=== PATIENT | male | born 1970 | race Caucasian/White ===

== ENCOUNTER 2024-06-11 19:54 | Emergency (ER) | payer BC, SELFPAY ==
[2024-06-11 19:55] VITALS: BMI 36.5
[2024-06-11 19:56] VITALS: BP 158/103
[2024-06-11 20:27] LABS: % Basophils 0.2 % (0-2); % Eosinophils 1.1 % (0-6); % Immature Granulocytes 0.2 % (0-0.5); % Lymphocytes 20.1 % (20.5-51.1); % Monocytes 6.6 % (1.7-9.3); % Neutrophils 71.8 % (42.2-75.2); Absolute Eosinophils 0.1 10^3/uL (0-0.7); Absolute Monocytes 0.7 10^3/uL (0.1-0.6); Absolute Neutrophils 7.1 10^3/uL (1.4-6.5); Hematocrit 41.2 % (39.0-52.0); Hemoglobin 14.4 g/dL (13.0-18.0); Mean Corpuscular Hgb 31.6 pg (27.0-31.0); Mean Corpuscular Volume 90.5 fL (80.0-94.0); Mean Platelet Volume 9.3 fL (7.4-10.4); Nucleated Red Blood Cells % 0 % (-); Platelet Count 196 10^3/uL (130-400); Red Blood Cell Count 4.55 10^6/uL (4.70-6.10); Red Cell Dist. Width 11.5 % (11.5-14.5); White Blood Cell Count 9.8 10^3/uL (4.8-10.8)
[2024-06-11 20:39] LABS: ALT (SGPT) 31 U/L (0-50); AST (SGOT) 25 U/L (17-59); Alkaline Phosphatase 60 U/L (38-126); Blood Urea Nitrogen 20 mg/dl (9-20); Calcium 9.4 mg/dl (8.4-10.2); Carbon Dioxide 30 mmol/L (22-30); Chloride 105 mmol/L (98-107); Glucose 119 mg/dl (70-99); Potassium 4.6 mmol/L (3.5-5.1); Sodium 140 mmol/L (135-145); Total Bilirubin 0.6 mg/dl (0.2-1.3); Total Protein 6.8 g/dl (6.3-8.2); eGFR > 60.00
[2024-06-11 20:51] LABS: Troponin I < 0.012 ng/ml
[2024-06-11 22:05] VITALS: BP 167/105
--- NOTE | 2024-06-11 23:06 | ED.GENMED ---
History of Present Illness
General
Chief Complaint: Facial Problem
Source: patient
Exam Limitations: none
Time Seen by Provider: 06/11/24 22:09
Nursing documentation reviewed up to this point in time: agreed with
History of Present Illness
History of Present Illness:
Patient presents to ED secondary to intermittent right facial numbness along with right shoulder 'discomfort'. Patient states that his symptoms started, shortly after waking up this morning. Denies headache. Denies dizziness. Denied blurred
vision. Denies loss of sensation or weakness. Denies difficulty with speech or swallowing. Denies difficulty with ambulation.
Review of Systems
Review of Systems
Allergies reviewed?: Yes
All Other Systems: ROS reviewed and negative except as documented in HPI and ROS
Constitutional: Reports no symptoms
EENT: Reports no symptoms
Respiratory: Reports no symptoms
Cardiac: Reports no symptoms
ABD/GI: Reports no symptoms
: Reports no symptoms
Musculoskeletal: Reports other (shoulder pain)
Skin: Reports no symptoms
Neurological: Reports numbness
Phy Exam
Physical Exam
Physical Exam:
Physical Exam
General: no apparent distress, not acutely ill. afebrile.
Head: nc/at. eomi
Neck: supple. normal range of motion. no midline tenderness.
Heart: s1/s2 regular rate and rhythm, no murmur.
Lungs: no acute respiratory distress. clear bilaterally
Abdomen: normal bowel sounds. not tender.
Neuro: alert and oriented x 3. no focal neurological deficits. normal speech. normal finger to nose testing
Skin: no rash
Psychiatric: well kept. interactive and cooperative
Extremities: no edema. no calf tenderness. mild right shoulder tenderness with elevation, without obvious deformity.
Course
Orders/Labs/Results
Orders:
Orders
06/11/24 19:59
Electrocardiogram (*1) Urgent
Reason for Study: Chest Pain
EKG- Treatment ONCE
06/11/24 20:09
Complete Blood Count/With Diff Urgent
Comprehensive Metabolic Panel Urgent
Troponin I Urgent
Abnormal Lab Results
06/11/24
20:09
RBC 4.55 L 10^6/uL
(4.70-6.10)
MCH 31.6 H pg
(27.0-31.0)
Absolute Neuts (auto) 7.1 H 10^3/uL
(1.4-6.5)
Absolute Monos (auto) 0.7 H 10^3/uL
(0.1-0.6)
Lymphocytes % 20.1 L %
(20.5-51.1)
Glucose 119 H mg/dl
(70-99)
06/11/24 20:09
06/11/24 20:09
Vital Signs
Initial and Last Documented VS:
Initial Vital Signs
Temp Pulse Resp BP Pulse Ox
98.5 F 81 18 158/103 99
06/11/24 19:56 06/11/24 19:56 06/11/24 19:56 06/11/24 19:56 06/11/24 19:56
Last Documented Vital Signs
Temp Pulse Resp BP Pulse Ox
98.5 F 81 18 162/99 94
06/11/24 19:56 06/11/24 19:56 06/11/24 19:56 06/11/24 23:11 06/11/24 23:12
MDM/Problems Addressed
MDM/Problems Addressed:
History and exam consistent with likely ongoing right shoulder pain, secondary to already diagnosed cervical nerve impingement, during hospitalization at another institution 3 months ago. Patient has been given information for an orthopedic surgery
follow-up, but has not had opportunity to make an appointment. Patient otherwise is afebrile, hemodynamically stable, and is without any focal neurological deficit, warranting any further studies at this time. Discussed obtaining repeat CT head
due to nonspecific intermittent right facial tingling sensation. However, patient defers imaging studies at this time, and feels comfortable going home, along with PCP follow-up, with any worsening symptoms, which I do feel is reasonable.
*Critical Care Note
Total Time (30-74mins, 75-104mins- exclusive of procedures): Not Applicable
ED Attending Note
-
Portions of this chart may have been created with voice recognition software.� Occasional wrong word or��sound alike� substitutions may have occurred due to the inherent limitations of voice recognition software.
Discharge Plan
Departure
Patient Disposition: Home (Routine Discharge)
Date of Disposition: 06/11/24
Time of Disposition: 23:07
Patient with high blood pressure during this ER visit?: Yes
Discharge Problem:
Paresthesia, Cervical radiculopathy
Instructions: Paresthesia (DC), Radiculopathy of the neck and back (including sciatica) - Discharge instructions
Prescriptions:
No Action
oxycodone-acetaminophen 10 MG/325 MG tablet
1 tab PO PRN (Reason: for pain)
aspirin [Aspir-81] 81 mg Tablet,Delayed Release (Dr/Ec)
81 mg PO Daily
baclofen 10 mg Tablet
10 mg PO HS
dextroamphetamine-amphetamine [Adderall] 20 mg Tablet
20 mg PO BID
valsartan 320 mg Tablet
320 mg PO DAILY
rosuvastatin 5 mg Tablet
5 mg PO DAILY
Ozempic 1 mg/dose (4 mg/3 mL) Pen Injector
1 mg SC QWEEK
Referrals:
NONE,* [Family Provider] -
Activity Restrictions/Additional Instructions:
As discussed, please follow-up with your primary care physician and/or orthopedic surgeon for continual evaluation and treatment. In the meantime, strongly recommend increasing fluid intake at home.
Interventions
Interventions:
*Risk Screen - Suicide Last Done: 06/11/24 19:59
*General Assessment Last Done: 06/11/24 19:58
*Neglect/Abuse Screening Last Done: 06/11/24 19:59
*ED COVID-19 Vaccine History Last Done: 06/11/24 19:59
*Nursing Disposition Last Done: 06/11/24 23:17
ED- Neurological Assessment Last Done: 06/11/24 22:16
ED-Skin Assessment Last Done: 06/11/24 22:16
Discharge Date and Time
Discharge Date/Time: 06/11/24 23:18
Print Language: [id number]
[2024-06-11 23:11] VITALS: BP 162/99
== END 2024-06-11 23:18 | disposition home or self-care (01) ==
LOC: EMR 19:54
PROVIDERS: Student in an Organized Health Care Education/Training Program; EMERGENCY PHYSICIAN Emergency Medicine
DX: M54.12 Radiculopathy, cervical region (principal); R20.2 Paresthesia of skin; R03.0 Elevated blood-pressure reading, without diagnosis of hypertension
CPT/HCPCS: 99284; 80053; 84484; 85025; 93005